=== PATIENT | female | born 1960 | race Caucasian/White ===

== ENCOUNTER 2018-05-06 17:52 | Emergency (ER) | payer SELFPAY ==
[2018-05-06 18:10] VITALS: BP 159/100; PULSE 99; RESP 13; TEMP 36.6; O2SAT 99
--- NOTE | 2018-05-06 18:12 | ED_ITS ---
HPI - Nausea/Vomiting/Diarrhea General Chief complaint: Chest Pain Stated complaint: chest pain,arms numb,Altered LOC per patient Time Seen by Provider: 05/06/18 18:09 Source: patient and family Mode of arrival: ambulatory Limitations: no limitations History of Present Illness HPI Narrative: a 57-year-old female with history of migraines, nonsmoker presents with her son in the chief complaint of 5 days of gradually worsening headache, sore throat, dry and hacking cough as well as nausea with some loose stools. Additionally today she states that she had some numbness and tingling in both of her upper extremities. She denies any neck pain, or history of the same. she denies any blurred vision or trouble with speech. She denies any weakness. She states that she has had a decreased appetite, not eating and not drinking as much as normal and is now dizzy upon standing MD complaint: nausea and vomiting Onset (ago): day(s) Description of Vomiting: food contents and watery Description of Diarrhea: none Associated Abdominal Pain: No Relieving factors: none Exacerbating factors: none Associated symptoms: cough, fever/chills, headaches, loss of appetite and nausea/vomiting Review of Systems Constitutional Denies chills, Denies fever(s), Reports headache(s), Denies lethargy, Reports malaise and Denies weakness Eyes Denies change in vision, Denies eye discharge, Denies irritation and Denies loss of vision ENT Ears, Nose, Mouth, and Throat: Denies change in voice, Reports dizziness, Reports headache(s), Reports nasal congestion, Denies neck pain and Reports sore throat Cardiovascular Denies chest pain, Denies irregular heart rhythm, Reports lightheadedness, Denies palpitations, Denies dyspnea, Denies dyspnea on exertion and Denies orthopnea Respiratory Reports cough, Denies dyspnea, Denies dyspnea on exertion and Denies wheezing Gastrointestinal Gastrointestinal: Denies abdominal pain, Denies change in bowel habits, Denies diarrhea, Reports nausea and Reports vomiting Genitourinary Denies hematuria, Denies flank pain, Denies urinary incontinence and Denies urinary urgency Musculoskeletal Denies neck pain Integumentary/Breasts Denies pruritus, Denies erythema, Denies rash and Denies wounds Neurologic Denies confusion, Reports dizziness, Reports headache(s), Denies loss of vision and Denies weakness Psychiatric Denies anxiety, Denies confusion, Denies depression, Denies homicidal ideation and Denies suicidal ideation Endocrine Denies palpitations Hematologic/Lymphatic Denies easy bruising Allergic/Immunologic Denies wheezing Exam Narrative Exam Narrative: GENERAL: 57F AOx3, obviously not feeling well. Requires some help to get out of wheelchair HEAD: Atraumatic. Normocephalic. No temporal or scalp tenderness. EYES: Pupils equal round and reactive. Extraocular motions intact. No scleral icterus. No injection or drainage. ENT: Dry membranes. Nose without bleeding, purulent drainage or septal hematoma. Throat without erythema, tonsillar hypertrophy or exudate. Uvula midline. Airway patent. NECK: Trachea midline. No JVD or lymphadenopathy. Supple, nontender, no meningeal signs. CARDIOVASCULAR: Regular rate and rhythm without murmurs, gallops, or rubs. RESPIRATORY: Clear to auscultation. Breath sounds equal bilaterally. No wheezes, rales, or rhonchi. GASTROINTESTINAL: Abdomen soft, non-tender, nondistended. No hepato- splenomegaly, or palpable masses. No guarding. EXTREMITIES: No clubbing, cyanosis, or edema. No joint tenderness, effusion, or edema noted. BACK: Nontender without deformity or crepitance. No flank tenderness. NEURO: AOx3. SKIN: No rash or erythema. NIH Stroke Scale 1a. LOC: Patient is alert and keenly responsive (0) 1b. LOC Questions: Patient answers both LOC questions accurately (0) 1c. LOC Commands: Patient performs both tasks correctly (0) 2. Best Gaze: Normal (0) 3. Visual: No visual loss (0) 4. Facial palsy: Normal symmetrical movements (0) 5. Motor arm: No drift (0) 6. Motor leg: No drift (0) 7. Limb ataxia: Absent (0) 8. Sensory: Normal (0) 9. Best language: No aphasia; normal (0) 10. Dysarthria: Normal (0) 11. Extinction and inattention: No abnormality (0) NIHSS: 0 Initial Vital Signs Initial Vital Signs: Vital Signs Temperature 97.9 F 05/06/18 18:10 Pulse Rate 99 H 05/06/18 18:10 Respiratory Rate 13 05/06/18 18:10 Blood Pressure 159/100 H 05/06/18 18:10 Pulse Oximetry 99 05/06/18 18:10 Course Orders Ordered: ED Orders 05/06/18 18:09 EKG-12 Lead Stat 05/06/18 18:46 Complete Blood Count AUTO DIFF Stat Comprehensive Metabolic Panel Stat Lipase Stat Troponin & CK Cardiac Panel Stat 05/06/18 19:00 Influenza A and B by PCR Rapid Stat 05/06/18 20:15 CT head/brain wo con Stat Discontinued Medications Gabapentin (Neurontin) 900 mg PO NOW ONE Stop: 05/06/18 20:16 Last Admin: 05/06/18 20:28 Dose: 900 mg Sodium Chloride (Normal Saline 0.9%) 1,000 mls @ 1,000 mls/hr IV BOLUS ONE Stop: 05/06/18 19:08 Last Infusion: 05/06/18 19:56 Dose: 0 mls/hr Admin: 05/06/18 18:55 Dose: 1,000 mls/hr Ketorolac Tromethamine (Toradol) 15 mg IV NOW ONE Stop: 05/06/18 19:56 Last Admin: 05/06/18 20:29 Dose: 15 mg Metoclopramide HCl (Reglan) 10 mg IV NOW ONE Stop: 05/06/18 19:56 Last Admin: 05/06/18 20:28 Dose: 10 mg Ondansetron HCl (Zofran) 4 mg IV NOW ONE Stop: 05/06/18 18:10 Last Admin: 05/06/18 18:55 Dose: 4 mg Reevaluation(s) Reevaluation #1: Patient feels much better after fluids, she is no longer dizzy or feeling weak. The tingling in her bilateral upper extremities has gone Vital Signs - 8 hr 05/06/18 18:10 05/06/18 18:30 05/06/18 19:00 Temperature 97.9 F Pulse Rate 99 H 73 81 Respiratory Rate 13 15 19 Blood Pressure 159/100 H Blood Pressure [Right Arm] 157/100 H 159/90 H Pulse Oximetry 99 95 98 05/06/18 20:00 05/06/18 21:02 Temperature Pulse Rate 79 74 Respiratory Rate 15 18 Blood Pressure 135/92 H Blood Pressure [Right Arm] 157/98 H Pulse Oximetry 98 98 MDM - Nausea/Vomiting/Diarrhea Differential Diagnosis Likely traveler's diarrhea, food poisoning, gastroenteritis, clostridium difficile infection, drug-induced nausea and vomiting and dehydration Medical Records Attestation: I reviewed the patient's medical records. Lab Data Attestation: I reviewed the patient's lab results. Result diagrams: 05/06/18 18:46 05/06/18 18:46 Lab Results 05/06/18 05/06/18 05/06/18 Range/Units 18:46 18:46 19:00 WBC 5.2 (4.5-11.0) X10^3/uL RBC 4.72 (4.0-5.2) X10^6/uL Hgb 12.1 (12.0-16.0) g/dL Hct 37.8 (36-46) % MCV 80.0 (80-100) fL MCH 25.6 L (26-34) PG MCHC 32.0 (30-36) % RDW 15.4 H (11.6-14.8) % Plt Count 259 (150-400) X10^3/uL Neut % (Auto) 52.7 (50-75) % Lymph % (Auto) 36.4 (25-40) % [place] % (Auto) 9.8 (3-14) % Eos % (Auto) 0.5 L (2-4) % Baso % (Auto) 0.6 (0-2) % Neut # (Auto) 2700 (8318-9267) /uL Lymph # (Auto) 1900 (3280-8182) /uL [place] # (Auto) 500 (0-900) /uL Eos # (Auto) 0 (0-450) /uL Baso # (Auto) 0 (0-100) /uL Sodium 140 (137-145) mmol/L Potassium 3.6 (3.4-5.1) mmol/L Chloride 102 (98-107) mmol/L Carbon Dioxide 26 (22-32) mmol/L BUN 8 (7-17) mg/dL Creatinine 0.60 (0.52-1.04) mg/dL Estimated GFR > 60.0 (>60) mL/min BUN/Creatinine Ratio 13.3 (6-22) Glucose 104 H (70-100) mg/dL Calcium 9.2 (8.4-10.2) mg/dL Total Bilirubin 0.2 (0.2-1.3) mg/dL AST 38 H (14-36) IU/L ALT 48 (9-52) IU/L Alkaline Phosphatase 88 (38-126) U/L Total Creatine Kinase 36 (30-135) U/L CK-MB (CK-2) TNP CK-MB (CK-2) Rel Index TNP Troponin I < 0.012 (0.01-0.034) ng/mL Total Protein 8.0 (6.3-8.2) g/dL Albumin 4.6 (3.5-5.0) g/dL Globulin 3.4 (1.7-4.1) g/dL Albumin/Globulin Ratio 1.4 (1.0-2.8) Lipase 42 (23-300) U/L Influenza A & B (PCR) Positive, type a A (Negative) Urine Dip Bedside Urine Glucose Negative Bedside Urine Bilirubin - Negative Bedside Urine Ketone - Negative Urine Specific [place] 1.015 Bedside Urine Occult Blood - Negative Bedside Urine pH 7.5 Bedside Urine Protein - Negative Bedside Urine Urobilinogen - Negative Bedside Urine Nitrite - Negative Bedside Urine Leukocytes - Negative Esterase Imaging Data CT scan - head: Radiologist's impression: [place] [address] CT Scan Report Signed Patient: Sheila Medrano R#: [id number] : 2Acct:[id number] Age/Sex: 57 / FDate of Service: 05/06/18 Loc: ED Accession Number: [id number] Procedure: CT head/brain wo con Ordering Provider: Juan Mesa D.O. PROCEDURE: CT HEAD/BRAIN WO CON INDICATIONS: headache, neuro symptoms TECHNIQUE: Noncontrast 4.5 mm thick angled axial sections acquired from the foramen magnum to the vertex, with coronal and sagittal reformats. For radiation dose reduction, the following was used: automated exposure control, adjustment of mA and/or kV according to patient size. COMPARISON: None. FINDINGS: Image quality: Excellent. CSF spaces: Basal cisterns are patent. No extra-axial fluid collections. Ventricles are normal in size and shape. Brain: No midline shift. No intracranial masses or hemorrhage. Coffman-white matter interface is normal. Skull and face: Calvarium and visualized facial bones are intact, without alvarado spicious lesions. Sinuses: Visualized sinuses and mastoids are clear. IMPRESSION: CT head without acute intracranial abnormalities. Dictated by: Keyon Tracy M.D. on 05/06/2018 at 21:01 Approved by: Keyon Tracy M.D. on 05/06/2018 at 21:01 [facility] Narrative Medical decision making narrative: 57-year-old female presents with chief complaint of dizziness weakness lightheadedness and some tingling of her upper extremities. His she has many signs and symptoms consistent with her diagnosis of flu including dehydration associated with nausea vomiting and decreased appetite. Head CT was performed given atypical neurologic symptoms of upper extremity tingling. cardiac etiology also considered but thought much less likely given lack of convincing ischemic findings as well as response to therapies and other positive labs Discharge Plan Departure Patient Disposition: Home Clinical Impression: Influenza A Discharge Date/Time: 05/06/18 21:02 Interventions: ED Discharge Assessment Last Done: 05/06/18 21:02 Instructions: DI for Influenza -- Adult Activity Restrictions/Additional Instructions: *You have been diagnosed with [ influenza ] *What to do: *Take medications as directed *Follow up with your primary care provider in 2-3 days, call for an appointment. Let them know you were seen in the Emergency Department and that we ask that you be seen in follow up *Return to ER if you should have any new, worsening or concerning symptoms
[2018-05-06 18:30] VITALS: BP 157/100; PULSE 73; RESP 15; O2SAT 95
[2018-05-06] MEDS: ONDANSETRON 4 MG/2 ML INJ IV (18:55)
[2018-05-06] MEDS: SODIUM CHLORIDE 0.9% 1,000 ML 1000 ML IV (18:55)
[2018-05-06 18:58] LABS: Add Manual Diff / Slide Review NO; Basophils Absolute Auto 0 /uL (0-100); Basophils Percent Auto 0.6 % (0-2); Eosinophils Absolute Auto 0 /uL (0-450); Eosinophils Percent Auto 0.5 % (2-4); Hematocrit 37.8 % (36-46); Hemoglobin 12.1 g/dL (12.0-16.0); Lymphocytes Absolute Auto 1900 /uL (1100-4500); Lymphocytes Percent Auto 36.4 % (25-40); Mean Corpuscular Hemoglobin 25.6 PG (26-34); Monocytes Absolute Auto 500 /uL (0-900); Monocytes Percent Auto 9.8 % (3-14); Neutrophils Absolute Auto 2700 /uL (1500-7000); Neutrophils Percent Auto 52.7 % (50-75); Platelet Count 259 X10^3/uL (150-400); Red Blood Cell Count 4.72 X10^6/uL (4.0-5.2); Red Cell Distribution Width 15.4 % (11.6-14.8); White Blood Cell Count 5.2 X10^3/uL (4.5-11.0)
[2018-05-06 19:00] VITALS: BP 159/90; PULSE 81; RESP 19; O2SAT 98
[2018-05-06 19:11] LABS: Alanine Aminotransferase 48 IU/L (9-52); Albumin 4.6 g/dL (3.5-5.0); Albumin Globulin Ratio 1.4 (1.0-2.8); Alkaline Phosphatase 88 U/L (38-126); Aspartate Aminotransferase 38 IU/L (14-36); BUN Creatinine Ratio 13.3 (6-22); Bilirubin Total 0.2 mg/dL (0.2-1.3); Blood Urea Nitrogen 8 mg/dL (7-17); Calcium 9.2 mg/dL (8.4-10.2); Carbon Dioxide 26 mmol/L (22-32); Chloride 102 mmol/L (98-107); Creatine Kinase 36 U/L (30-135); Estimated Glomerular Filt Rate > 60.0 mL/min (>60); Globulin 3.4 g/dL (1.7-4.1); Glucose 104 mg/dL (70-100); HEMOLYSIS < 15 (0-50); Lipase 42 U/L (23-300); Potassium 3.6 mmol/L (3.4-5.1); Sodium 140 mmol/L (137-145)
[2018-05-06 19:23] LABS: Troponin I < 0.012 ng/mL (0.01-0.034)
[2018-05-06 20:00] VITALS: BP 157/98; PULSE 79; RESP 15; O2SAT 98
--- NOTE | 2018-05-06 20:15 | DI.CT.S_ITS ---
PROCEDURE: CT HEAD/BRAIN WO CON INDICATIONS: headache, neuro symptoms TECHNIQUE: Noncontrast 4.5 mm thick angled axial sections acquired from the foramen magnum to the vertex, with coronal and sagittal reformats. For radiation dose reduction, the following was used: automated exposure control, adjustment of mA and/or kV according to patient size. COMPARISON: None. FINDINGS: Image quality: Excellent. CSF spaces: Basal cisterns are patent. No extra-axial fluid collections. Ventricles are normal in size and shape. Brain: No midline shift. No intracranial masses or hemorrhage. Coffman-white matter interface is normal. Skull and face: Calvarium and visualized facial bones are intact, without suspicious lesions. Sinuses: Visualized sinuses and mastoids are clear. IMPRESSION: CT head without acute intracranial abnormalities. Dictated by: Keyon Tracy M.D. on 05/06/2018 at 21:01 Approved by: Keyon Tracy M.D. on 05/06/2018 at 21:01
[2018-05-06] MEDS: GABAPENTIN 300 MG CAPSULE 900 MG PO (20:28)
[2018-05-06] MEDS: METOCLOPRAMIDE 10 MG/2 ML INJ IV (20:28)
[2018-05-06] MEDS: KETOROLAC 60 MG/2 ML VIAL 15 MG IV (20:29)
[2018-05-06 21:02] VITALS: BP 135/92; PULSE 74; RESP 18; O2SAT 98
== END 2018-05-06 21:02 | disposition home or self-care (01) ==
PROVIDERS: Emergency Provider Emergency Medicine
DX: J11.1 Influenza due to unidentified influenza virus with other respiratory manifestations (principal); G43.909 Migraine, unspecified, not intractable, without status migrainosus
CPT/HCPCS: 36591; 70450; 80053; 81003; 82550; 83690; 84484; 85025; 87400; 93005; 96361; 96374; 96375; 99283; 99285; J1885; J2405; J2765

== ENCOUNTER 2023-09-16 22:55 | Emergency (ER) | payer OTHER, MEDICAID, SELFPAY ==
[2023-09-16 23:05] VITALS: BP 122/84; PULSE 83; RESP 16; TEMP 36.3; O2SAT 97; BMI 26.5
--- NOTE | 2023-09-16 23:21 | DI.RAD.S_ITS ---
PROCEDURE: XR HAND RT MIN 3V INDICATIONS: pain swelling TECHNIQUE: 3 views of the hand(s) acquired. COMPARISON: None. FINDINGS: Bones: No acute fracture or dislocation. Severe degenerative changes of the distal and proximal interphalangeal joints of the right hand and thumb. Findings are most pronounced at the interphalangeal joint of the right thumb, DIP of the 2nd and 3rd fingers, and PIP is of the 2nd and 3rd fingers. Moderate degenerative changes of the thumb metacarpophalangeal joint, 1st carpometacarpal joint and triscaphe joint. There is mild ulnar deviation of the right 2nd and 3rd fingers at the level of the PIP joint with flexion at the 2nd distal interphalangeal joint. No suspicious osseous erosions. Soft tissues: No suspicious soft tissue calcifications. IMPRESSION: Right hand without acute fracture or dislocation. Severe polyarticular hypertrophic degenerative changes of the right hand as detailed above. If there are persistent symptoms or clinical suspicion for pathology, then repeat radiographs or advanced imaging (CT or MRI) may be considered for further evaluation. Dictated by: Keyon Tracy M.D. on 09/16/2023 at 23:49 Approved by: Keyon Tracy M.D. on 09/16/2023 at 23:51
--- NOTE | 2023-09-17 01:52 | ED.EXTPRO ---
HPI - Extremity Problem General Chief complaint: Extremity Problem,Nontraumatic Stated complaint: rt hand inj/swelling Source: patient Mode of arrival: Ambulatory History of Present Illness HPI Narrative: Patient left without seeing provider Exam Initial Vital Signs Initial Vital Signs: Vital Signs Temperature 97.4 F L 09/16/23 23:05 Pulse Rate 83 09/16/23 23:05 Respiratory Rate 16 09/16/23 23:05 Blood Pressure 122/84 09/16/23 23:05 Pulse Oximetry 97 09/16/23 23:05 Oxygen Delivery Method Room Air 09/16/23 23:05 Course Orders Ordered: ED Orders 09/16/23 23:21 XR hand RT min 3V Stat Vital Signs Vital signs: Vital Signs - 8 hr 09/16/23 23:05 Temperature 97.4 F L Pulse Rate 83 Respiratory Rate 16 Blood Pressure 122/84 Pulse Oximetry 97 Oxygen Delivery Method Room Air Discharge Plan Departure Patient Disposition: Left Without Being Seen Clinical Impression: Patient left after triage
== END 2023-09-17 00:34 | disposition left against medical advice (07) ==
PROVIDERS: Emergency Provider Emergency Medicine; PCP Family Medicine
DX: R22.31 Localized swelling, mass and lump, right upper limb (principal); Z53.21 Procedure and treatment not carried out due to patient leaving prior to being seen by health care provider
CPT/HCPCS: 73130; 99281

== ENCOUNTER 2023-10-31 13:37 | Emergency (ER) | payer OTHER, MEDICAID, SELFPAY ==
--- NOTE | 2023-10-31 13:40 | DI.RAD.S_ITS ---
PROCEDURE: XR HIP W PEL IF DONE LT 2V INDICATIONS: left hip pain TECHNIQUE: AP pelvis with lateral view(s) of the left hip(s). COMPARISON: None. FINDINGS: Bones: No fractures or dislocations advanced degenerative arthritis of the bilateral hips with prominent osteophytes and joint space obliteration. Pelvic ring appears intact. No suspicious bony lesions. Soft tissues: The visualized bowel gas pattern is normal. No suspicious soft tissue calcifications. IMPRESSION: Advanced bilateral hip degenerative arthritis. No acute bony abnormality. Dictated by: Adolph Priest M.D. on 10/31/2023 at 16:51 Approved by: Adolph Priest M.D. on 10/31/2023 at 16:52
[2023-10-31 13:42] VITALS: BP 132/70; PULSE 88; RESP 22; TEMP 36.3; O2SAT 100; BMI 26.5
[2023-10-31 13:43] VITALS: PULSE 88; RESP 16; O2SAT 99
--- NOTE | 2023-10-31 13:46 | PC.NURSE ---
Pt denies injury. pt having extreme left hip pain. Pt having difficulty lying still,pt tearful and wimpering in pain
[2023-10-31 13:51] VITALS: PULSE 80
[2023-10-31] MEDS: KETOROLAC 30 MG/ML VIAL IM (13:56)
[2023-10-31] MEDS: methocarbamoL 500 MG TABLET PO (13:56)
--- NOTE | 2023-10-31 14:19 | ED.EXTPRO ---
HPI - Extremity Problem General Chief complaint: Extremity Problem,Nontraumatic Stated complaint: L. Hip pain, no fall Time Seen by Provider: 10/31/23 13:39 Source: patient and EMS Mode of arrival: EMS History of Present Illness HPI Narrative: 63-year-old female complains of 2 days' duration left hip pain, radiating down the back and the front of her leg, no fall injury new activities recalled. No history of prior back surgeries. No numbness or weakness to the leg. Worse with left hip movements. History of arthritis of the left hip. No fevers or chills. No dysuria or frequency of urination. No known cancers per triage past medical history. No numbness to perineal region. Related Data Previous Rx's Medication Instructions Recorded cyclobenzaprine 10 mg tablet 10 mg PO TID #20 tabs 10/31/23 hydromorphone 2 mg tablet 2 mg PO Q4-6H PRN pain #30 tabs 10/31/23 (Dilaudid) methylprednisolone 4 mg tablets in See Rx Instructions PO .COMPLEX 10/31/23 a dose pack (Medrol (Chau)) #21 ea naproxen 500 mg tablet 500 mg PO BID 7 days #14 tabs 10/31/23 Allergies Allergy/AdvReac Type Severity Reaction Status Date / Time morphine Allergy Verified 10/31/23 13:38 Review of Systems Review of Systems Narrative: see HPI Patient History Social History Smoking Status: Never smoker Smoking Status: Never smoker Substance Use Type: does not use Exam Narrative Exam Narrative: GENERAL: Well-developed patient, in moderate distress, inconsistent, abruptly stops when giving history and then resumes moaning and thrashing around in pain. HEAD: Atraumatic. Normocephalic. EYES: Pupils equal round and reactive. Extraocular motions intact. No scleral icterus. No injection or drainage. ENT: Nose without bleeding, purulent drainage. Throat without erythema, tonsillar hypertrophy or exudate. Airway patent. NECK: Trachea midline. Non tender CARDIOVASCULAR: Regular rate and rhythm without murmurs, gallops, or rubs. RESPIRATORY: Clear to auscultation. Breath sounds equal bilaterally. No wheezes, rales, or rhonchi. GASTROINTESTINAL: Abdomen soft, non-tender, nondistended. EXTREMITIES: No edema or joint tenderness. BACK: Nontender without deformity or crepitance. No flank tenderness. No posterior scars, no redness, no tenderness midline or paraspinous lumbar spinal regional tenderness. NEURO: AOx3. Refuses to attempt lift at left leg due to left hip pain, passively 30? left leg before hip pain, no posterior thigh pain or calf pain. Other motor extremity unremarkable. Cranial nerves unremarkable. SKIN: No rash or erythema of visible areas Initial Vital Signs Initial Vital Signs: Vital Signs Temperature 97.4 F L 10/31/23 13:42 Pulse Rate 88 10/31/23 13:42 Respiratory Rate 22 10/31/23 13:42 Blood Pressure 132/70 10/31/23 13:42 Pulse Oximetry 100 10/31/23 13:42 Oxygen Delivery Method Room Air 10/31/23 13:42 Course Orders Ordered: ED Orders 10/31/23 13:40 XR hip w pel if done LT 2V Stat 10/31/23 14:55 CT lumbar spine wo con Stat Discontinued Medications Cyclobenzaprine HCl (Cyclobenzaprine 10 Mg Tablet) 10 mg PO NOW ONE Stop: 10/31/23 15:01 Last Admin: 10/31/23 15:11 Dose: 10 mg Documented By: NOLAN Dexamethasone (Dexamethasone 10 Mg/Ml Vial) 10 mg IM NOW ONE Stop: 10/31/23 14:57 Last Admin: 10/31/23 15:10 Dose: 10 mg Documented By: NOLAN Hydromorphone HCl (Hydromorphone 1 Mg Inj) 1 mg IM NOW ONE Stop: 10/31/23 14:56 Last Admin: 10/31/23 15:10 Dose: 1 mg Documented By: NOLAN Ketorolac Tromethamine (Ketorolac 30 Mg/Ml Vial) 30 mg IM NOW ONE Stop: 10/31/23 13:53 Last Admin: 10/31/23 13:56 Dose: 30 mg Documented By: STEVIE Methocarbamol (Methocarbamol 500 Mg Tablet) 500 mg PO NOW ONE Stop: 10/31/23 13:53 Last Admin: 10/31/23 13:56 Dose: 500 mg Documented By: STEVIE Vital Signs Vital signs: Vital Signs - 8 hr 10/31/23 13:42 10/31/23 13:43 10/31/23 13:51 Temperature 97.4 F L Pulse Rate 88 88 Pulse Rate [Left Dorsalis Pedis] 80 Respiratory Rate 22 16 Blood Pressure 132/70 Pulse Oximetry 100 99 Oxygen Delivery Method Room Air 10/31/23 15:42 10/31/23 17:21 10/31/23 18:22 Temperature Pulse Rate 77 94 H 77 Pulse Rate [Left Dorsalis Pedis] Respiratory Rate 20 20 18 Blood Pressure 147/87 H 147/84 H 134/78 Pulse Oximetry 100 100 100 Oxygen Delivery Method Room Air Room Air MDM - Extremity (Nontraumatic) Imaging Data X-ray left hip with pelvis: Radiologist's Impression: [address] [address] XRay Report Signed Patient: Sheila Syed MR#: [id number] : 1960 Acct:[id number] Age/Sex: 63 / F Date of Service: 10/31/23 Loc: ED Accession Number: [id number] Procedure: XR hip w pel if done LT 2V Ordering Provider: Clinton Clemons MD PROCEDURE: XR HIP W PEL IF DONE LT 2V INDICATIONS: left hip pain TECHNIQUE: AP pelvis with lateral view(s) of the left hip(s). COMPARISON: None. FINDINGS: Bones: No fractures or dislocations advanced degenerative arthritis of the bilateral hips with prominent osteophytes and joint space obliteration. Pelvic ring appears intact. No suspicious bony lesions. Soft tissues: The visualized bowel gas pattern is normal. No suspicious soft tissue calcifications. IMPRESSION: Advanced bilateral hip degenerative arthritis. No acute bony abnormality. Dictated by: Adolph Priest M.D. on 10/31/2023 at 16:51 Approved by: Adolph Priest M.D. on 10/31/2023 at 16:52 CT lumbar spine: Radiologist's Impression: [address] [address] [address] Scan Report Signed Patient: Sheila Syed MR#: [id number] : 1960 Acct:[id number] Age/Sex: 63 / F Date of Service: 10/31/23 Loc: ED Accession Number: [id number] Procedure: CT lumbar spine wo con Ordering Provider: Clinton Clemons MD PROCEDURE: CT LUMBAR SPINE WO CON INDICATIONS: LBP, left leg pain TECHNIQUE: Noncontrast 3 mm thick sections acquired from the T12 level to the sacrum. Sagittal and coronal reformats were constructed. For radiation dose reduction, the following was used: automated exposure control. COMPARISON: None. FINDINGS: Image quality: Excellent. Bones: There is normal bony alignment. No acute vertebral body compression fractures. No suspicious lytic or blastic bony lesions. No pars defects. T12-L1: No canal stenosis or foraminal stenosis. L1-L2: No canal stenosis or foraminal stenosis. L2-L3: Disc bulge. Borderline canal stenosis. No foraminal stenosis. L3-L4: Diffuse disc bulge. Facet and ligament hypertrophy. Mild canal stenosis. There is a far left lateral disc bulge which minimally displaces the left L3 nerve root far laterally. Recommend clinical correlation for presence or absence of left L3 radiculitis. Reference axial images 56 and 57 of axial series 3. L4-L5: Severe chronic disc height loss. Posterior disc post osteophyte. Facet hypertrophy. Borderline canal stenosis. Moderate to severe left foraminal narrowing with a degree of left foraminal L4 nerve root impingement. L5-S1: Severe chronic disc height loss. Posterior disc post osteophyte. Facet hypertrophy. No canal stenosis. Moderate to severe bilateral foraminal narrowing with a degree of bilateral foraminal L5 nerve root impingement. Soft tissues: No retroperitoneal masses or hematomas. Visualized aorta is normal in caliber. Numerous small gallstones versus gallbladder gravel. IMPRESSION: 1. There is diffuse degenerative change. 2. Canal stenosis is borderline at L2-L3, mild at L3-L4, and borderline at L4-L5. 3. In this patient with left leg pain, there is a far left lateral disc bulge minimally displacing the left L3 nerve root far laterally. There is also moderate to severe left foraminal narrowing at L4-L5 and L5-S1. Recommend correlation for presence or absence of left L3, left L4, and/or left L5 symptoms. Dictated by: Adolph Priest M.D. on 10/31/2023 at 16:53 Approved by: Adolph Priest M.D. on 10/31/2023 at 17:00 [facility] Narrative Medical decision making narrative: 64-year-old female with left hip pain, history of arthritis, writhing in pain, however stops writhing in pain to clearly delineate her history, then resumes writhing. Inconsistent exam. X-ray left hip requested. IM Toradol, oral Robaxin dose for now. Left hip with arthritic changes, no obvious fracture or dislocation changes, await Radiology over reading. Still having pain, IM Dilaudid dose. CT lumbar sacral spine ordered. Nursing also has experience with patient this visit, seems to be in no distress until she makes patient contact and then patient seems to be in distress. X-ray hips show advanced arthritic changes, no fractures, see radiology report. CT lumbar spine showed multilevel arthritic changes, some spinal bulging left-sided also noted. See radiology report. Trial of outpatient treatment, Medrol Dosepak, analgesics patient requests oral Dilaudid that does not make her feel nauseated for which she had previous after shoulder surgery and tolerated well, we will also prescribe muscle relaxant cyclobenzaprine to try if needed. Discharged home with family. Follow up with PCP, consider outpatient lumbosacral MRI imaging. Critical Care Time Critical Care Time Critical Care Time: Yes Total Critical Care Time: 31 Attestation: The high probability of a clinically significant, sudden or life threatening deterioration of the [musculoskeletal, spinal, orthopedic, neurologic] system(s) required my full and direct attention, intervention and personal management. The aggregate critical care time was [31] minutes. This time is in addition to time spent performing reported procedures but includes the following: [x] Data Review and interpretation [x] Patient assessment and monitoring of vital signs [x] Documentation [x] Medication orders and management Discharge Plan Departure Patient Disposition: Home Clinical Impression: Left sided sciatica, Arthritis of both hips Activity Restrictions/Additional Instructions: Left-sided hip pain, and buttock pain. X-ray left hip with pelvis showed arthritic changes of both hips, no lytic lesions, no fractures or dislocations. CT scanning of the lumbar spine showed multilevel disc disease, some protrusion to the left side which might be causing some of your symptoms. You had improved symptoms with injected steroid, pain reliever medications, reported relief with Dilaudid and nausea with other opiate pain medications. Continue taking nonsteroidal anti-inflammatory medication such as naproxen. Trial of muscle relaxant cyclobenzaprine. Take further steroids Medrol Dosepak. Oral Dilaudid also prescribed for additional pain control. Follow up with your regular provider in the next couple of days to reassess symptoms. Consider MRI lumbar sacral spine as an outpatient. You might consider spine surgery consultation, and/or epidural steroid injection treatments, though often times MRI spinal imaging is required first. Discharged home improved family. Return earlier to this/nearest emergency department for any change worsening symptoms or any concerns prior Prescriptions: New methylprednisolone [Medrol (Chau)] 4 mg tablets,dose pack See Rx Instructions PO .COMPLEX Qty: 21 0RF Rx Instructions: orally per package directions; 6 tablets 1st day, 5 tablets 2nd day, 4 tablets 3rd day, 3 tablets 4th day, 2 tablets 5th day, 1 tablet on 6th day cyclobenzaprine 10 mg tablet 10 mg PO TID Qty: 20 0RF naproxen 500 mg tablet 500 mg PO BID 7 Days Qty: 14 0RF hydromorphone [Dilaudid] 2 mg tablet 2 mg PO Q4-6H PRN (Reason: pain) Qty: 30 0RF Referrals: Lizz Ndiaye MD [Primary Care Provider] - Shasta Uriostegui MD [Physician] - Stand Alone Forms: Patient Portal/API
--- NOTE | 2023-10-31 14:27 | PC.NURSE ---
Hot pack given to place on hip. Meds given. Pt appears generally uncomfortable in bed and is crying out loudly. Advised meds with take time to work. XR in room to obtain images.
--- NOTE | 2023-10-31 14:55 | DI.CT.S_ITS ---
PROCEDURE: CT LUMBAR SPINE WO CON INDICATIONS: LBP, left leg pain TECHNIQUE: Noncontrast 3 mm thick sections acquired from the T12 level to the sacrum. Sagittal and coronal reformats were constructed. For radiation dose reduction, the following was used: automated exposure control. COMPARISON: None. FINDINGS: Image quality: Excellent. Bones: There is normal bony alignment. No acute vertebral body compression fractures. No suspicious lytic or blastic bony lesions. No pars defects. T12-L1: No canal stenosis or foraminal stenosis. L1-L2: No canal stenosis or foraminal stenosis. L2-L3: Disc bulge. Borderline canal stenosis. No foraminal stenosis. L3-L4: Diffuse disc bulge. Facet and ligament hypertrophy. Mild canal stenosis. There is a far left lateral disc bulge which minimally displaces the left L3 nerve root far laterally. Recommend clinical correlation for presence or absence of left L3 radiculitis. Reference axial images 56 and 57 of axial series 3. L4-L5: Severe chronic disc height loss. Posterior disc post osteophyte. Facet hypertrophy. Borderline canal stenosis. Moderate to severe left foraminal narrowing with a degree of left foraminal L4 nerve root impingement. L5-S1: Severe chronic disc height loss. Posterior disc post osteophyte. Facet hypertrophy. No canal stenosis. Moderate to severe bilateral foraminal narrowing with a degree of bilateral foraminal L5 nerve root impingement. Soft tissues: No retroperitoneal masses or hematomas. Visualized aorta is normal in caliber. Numerous small gallstones versus gallbladder gravel. IMPRESSION: 1. There is diffuse degenerative change. 2. Canal stenosis is borderline at L2-L3, mild at L3-L4, and borderline at L4-L5. 3. In this patient with left leg pain, there is a far left lateral disc bulge minimally displacing the left L3 nerve root far laterally. There is also moderate to severe left foraminal narrowing at L4-L5 and L5-S1. Recommend correlation for presence or absence of left L3, left L4, and/or left L5 symptoms. Dictated by: Adolph Priest M.D. on 10/31/2023 at 16:53 Approved by: Adolph Priest M.D. on 10/31/2023 at 17:00
[2023-10-31] MEDS: DEXAMETHASONE 10 MG/ML VIAL IM (15:10)
[2023-10-31] MEDS: HYDROMORPHONE 1 MG INJ IM (15:10)
[2023-10-31] MEDS: CYCLOBENZAPRINE 10 MG TABLET PO (15:11)
[2023-10-31 15:42] VITALS: BP 147/87; PULSE 77; RESP 20; O2SAT 100
[2023-10-31 17:21] VITALS: BP 147/84; PULSE 94; RESP 20; O2SAT 100
--- NOTE | 2023-10-31 17:22 | PC.NURSE ---
pt medicated with multiple rounds of pain medication and reports no relief. pt is resting in bed with family in room. calm until RN in room and then moaning loudly in pain and crying. made aware. no new orders
[2023-10-31 18:22] VITALS: BP 134/78; PULSE 77; RESP 18; O2SAT 100
== END 2023-10-31 18:23 | disposition home or self-care (01) ==
PROVIDERS: Emergency Provider Emergency Medicine; PCP Family Medicine
DX: M54.32 Sciatica, left side (principal); M16.0 Bilateral primary osteoarthritis of hip
CPT/HCPCS: 72131; 73502; 96372; 99284; J1100; J1170; J1885